=== PATIENT | male | born 1985 ===

== ENCOUNTER 2016-11-07 22:16 | Emergency (ER) | payer OTHER ==
[2016-11-07] MEDS ORDERED: NORCO 5/325 MG PO ONE ×2 (22:38)
[2016-11-07] MEDS ORDERED: CLEOCIN 150 MG CAPSULE PO ONE (22:38)
[2016-11-07] MEDS ORDERED: CLEOCIN 150 MG CAPSULE ONE (22:41)
[2016-11-07] MEDS ORDERED: NORCO 5/325 MG ONE (22:42)
--- NOTE | 2016-11-07 22:44 | ERPHSYRPT ---
- History of Present Illness Time Seen by Provider: 11/07/16 22:29 Source: patient Patient Subjective Stated Complaint: toothache Triage Nursing Assessment: patient has an abscess visible on gums on top right side of mouth molar is infected Physician History: CC: tooth pain Hx: 30 y/o patient works at [employer]. He has right upper tooth pain, swelling. No fever. Worse over few days. Started with a broken tooth about a year ago. Has not been able to see a dentist due to work schedule. Severity: severe ENT Location: dental Prearrival Treatment: over the counter meds (APAP/motrin) Allergies/Adverse Reactions: No Known Drug Allergies Allergy (Unverified 11/07/16 22:21) Hx Tetanus, Diphtheria Vaccination/Date Given: Yes Hx Influenza Vaccination/Date Given: No Hx Pneumococcal Vaccination/Date Given: No Immunizations Up to Date: Yes - Review of Systems Constitutional: No Fever, No Chills Ears, Nose, & Throat: Mouth Pain, Mouth Swelling Respiratory: No Dyspnea Skin: No Rash, No Skin Lesions Neurological: No Focal Weakness, No Headache, No Parasthesia - Past Medical History Pertinent Past Medical History: No - Past Surgical History Past Surgical History: No - Social History Smoking Status: Current every day smoker Drug Use: none - Nursing Vital Signs Nursing Vital Signs: Initial Vital Signs Temperature 97.8 F Temperature Source Oral Pulse Rate 71 Respiratory Rate 20 Blood Pressure [Right Arm] 145/79 Pain Intensity 10 - Physical Exam General Appearance: alert Eye Exam: bilateral eye: PERRL, EOMI Throat Exam: normal, dental tenderness (right upper 2nd and 3rd molar broken, tender with odontogenic abscess, no trismus, no facial cellulitis), moist mucus membranes Neck Exam: supple Cardiovascular/Respiratory Exam: regular rate/rhythm Skin Exam: warm, dry SpO2 Interpretation: normal SpO2: 99 Oxygen Delivery: Room Air - Course Nursing assessment & vital signs reviewed: Yes - Progress Progress Note: 11/07/16 22:43 Advised need for dentist as soon as possible. Rx cleocin, norco. Instr given. 11/07/16 22:46 INSPECT reviewed. Counseled pt/family regarding: diagnosis, need for follow-up (dental referral list given) - Departure Time of Disposition: 22:44 Departure Disposition: Home Clinical Impression: odontogenic abscess Condition: Stable Critical Care Time: No Referrals: DOCTOR,NO FAMILY [Primary Care Provider] - Instructions: Tooth Abscess Additional Instructions: See dentist as soon as possible this week. Rx cleocin. Rx norco- no driving or operating machinery. Prescriptions: Hydrocodone Bit/Acetaminophen [[place] 5-325 Tablet] 1 each PO Q6H PRN PRN #15 tablet PRN Reason: Pain Clindamycin HCl 1 cap PO QID #40 capsule
[2016-11-07 23:20] VITALS: BP 137/92; PULSE 74; O2SAT 98
== END 2016-11-07 23:20 | disposition home or self-care (01) ==
LOC: ED 22:16
DX: K04.7 Periapical abscess without sinus (principal)
CPT/HCPCS: 99283; A9270-GY